=== PATIENT | male | born 1995 | race Caucasian/White ===

== ENCOUNTER 2017-10-06 14:29 | Emergency (ER) | payer SELFPAY ==
[2017-10-06 14:30] VITALS: BP 148/91; PULSE 98; RESP 16; TEMP 99.2; O2SAT 97
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
[2017-10-06] MEDS ORDERED: ceFAZolin 2 GM PREMIX 50 ML IV ONE (17:00)
[2017-10-06] MEDS ORDERED: ONDANSETRON HCL 4 MG/2 ML VIAL IV PUSH ONE (17:00)
[2017-10-06] MEDS ORDERED: MORPHINE SULFATE 2 MG/ML INJ IV PUSH ONE (17:00)
[2017-10-06 17:24] VITALS: BP 123/65
== END 2017-10-06 17:25 | disposition left against medical advice (07) ==
LOC: NEPC 14:29
DX: S02.652A Fracture of angle of left mandible, initial encounter for closed fracture (principal); S02.651A Fracture of angle of right mandible, initial encounter for closed fracture; Y04.2XXA Assault by strike against or bumped into by another person, initial encounter; Z72.0 Tobacco use
CPT/HCPCS: 70486; 99283